=== PATIENT | female | born 1990 | race African-American/Black ===

== ENCOUNTER 2016-12-14 09:22 | Emergency (ER) | payer MEDICAID, OTHER ==
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
--- NOTE | 2016-12-14 10:46 | RAD ---
HISTORY: Wrist pain, deformity of the radial styloid, right wrist COMPARISONS: None VIEWS: 3, Frontal, lateral, and oblique views of the right wrist FINDINGS: BONE DENSITY: Normal. BONES: There is no displaced fracture. JOINTS: There is no arthropathy. ALIGNMENT: There is no dislocation. SOFT TISSUES: Unremarkable. OTHER FINDINGS: None. IMPRESSION: NO ACUTE OSSEOUS INJURY. IF SYMPTOMS PERSIST, RECOMMEND REPEAT IMAGING.
[2016-12-14 11:11] VITALS: BP 110/66
== END 2016-12-14 11:09 | disposition home or self-care (01) ==
LOC: ED 09:22
DX: M65.80 Other synovitis and tenosynovitis, unspecified site (principal); M25.531 Pain in right wrist; F17.210 Nicotine dependence, cigarettes, uncomplicated
CPT/HCPCS: 99282

== ENCOUNTER 2017-09-27 11:06 | Emergency (ER) | payer OTHER ==
[2017-09-27 11:12] VITALS: BP 106/74
[2017-09-27] MEDS ORDERED: Ondansetron INJ* 2 MG/ML VIAL IV ONE (11:29)
[2017-09-27] MEDS ORDERED: NS 0.9% 1000 ML* 1,000 ML IV ONE (11:29)
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
[2017-09-27 12:01] LABS: ABS Basophils 0 10^3/ul (0-0.2); ABS Eosinophils 0.1 10^3/ul (0-0.6); ABS Lymphocytes 1.1 10^3/ul (1.0-4.8); ABS Monocytes 0.4 10^3/ul (0-0.8); ABS Neutrophils 3.1 10^3/ul (1.5-7.7); ABS Nucleated RBC 0 10^3/ul; Eosinophil % 1.2 % (0-6); Hematocrit 40 % (35-47); Hemoglobin 13.6 g/dl (12.0-16.0); Lymphocyte % 24.5 % (25-47); Mean Corpuscular HGB Conc 34 g/dl (31-36); Mean Corpuscular Hemoglobin 30 pg (27-31); Mean Corpuscular Volume 88 fL (80-97); Mean Platelet Volume 7 um3 (7.4-10.4); Nucleated Red Blood Cells % 0; Platelet Count 316 10^3/ul (150-450); Red Blood Count 4.57 10^6/ul (4.0-5.4); Red Cell Distribution Width 13 % (10.5-15); White Blood Count 4.6 10^3/ul (3.5-10.8)
[2017-09-27 12:15] LABS: EGFR Non-African American 60.5 (>60)
== END 2017-09-27 12:54 | disposition home or self-care (01) ==
LOC: ED 11:06
DX: K52.9 Noninfective gastroenteritis and colitis, unspecified (principal); R11.2 Nausea with vomiting, unspecified; R53.83 Other fatigue; R19.7 Diarrhea, unspecified; R06.02 Shortness of breath; Z86.59 Personal history of other mental and behavioral disorders; F17.210 Nicotine dependence, cigarettes, uncomplicated
CPT/HCPCS: 36415; 80053; 83605; 83690; 83735; 84702; 85025; 86140; 87502; 96374; 99282; J2405

== ENCOUNTER 2018-01-22 12:13 | Emergency (ER) | payer SELFPAY ==
[2018-01-22] MEDS ORDERED: Iohexol 300* (CONTRAST) 10 ML SDV IV ONE (13:35)
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
[2018-01-22 14:32] VITALS: BP 129/81
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
== END 2018-01-22 14:34 | disposition short-term general hospital (02) ==
LOC: ED 12:13
DX: M25.571 Pain in right ankle and joints of right foot (principal); R51 Headache; R07.9 Chest pain, unspecified; F41.9 Anxiety disorder, unspecified; F90.9 Attention-deficit hyperactivity disorder, unspecified type; F17.210 Nicotine dependence, cigarettes, uncomplicated; M54.9 Dorsalgia, unspecified; S00.511A Abrasion of lip, initial encounter; V09.9XXA Pedestrian injured in unspecified transport accident, initial encounter; Y92.9 Unspecified place or not applicable; F19.21 Other psychoactive substance dependence, in remission
CPT/HCPCS: 70450; 71260; 72125; 72128; 72131; 74177; 93005; 96374; 99284; Q9967

== ENCOUNTER 2018-01-25 13:08 | Emergency (ER) | payer MEDICAID ==
[2018-01-25] MEDS ORDERED: Cyclobenzaprine TAB* 10 MG PO ONE (13:25)
[2018-01-25] MEDS ORDERED: Ketorolac INJ* 60 MG/2 ML VIAL IM ONE (13:25)
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
[2018-01-25 14:18] VITALS: BP 99/78
== END 2018-01-25 14:16 | disposition home or self-care (01) ==
LOC: ED 13:08
DX: S13.4XXA Sprain of ligaments of cervical spine, initial encounter (principal); V89.2XXA Person injured in unspecified motor-vehicle accident, traffic, initial encounter; Y92.9 Unspecified place or not applicable; F17.210 Nicotine dependence, cigarettes, uncomplicated
CPT/HCPCS: 96372; 99282; A9270-GY; J1885

== ENCOUNTER 2018-06-23 17:11 | Emergency (ER) | payer SELFPAY ==
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
--- NOTE | 2018-06-23 17:54 | RAD ---
HISTORY: OD COMPARISONS: None VIEWS: 1: frontal AP view of the chest at 5:40 PM FINDINGS: LINES AND TUBES: None. CARDIOMEDIASTINAL SILHOUETTE: The cardiomediastinal silhouette is normal for portable technique. PLEURA: The costophrenic angles are sharp. No pleural abnormalities are noted. LUNG PARENCHYMA: The lungs are clear. ABDOMEN: The upper abdomen is clear. There is no subphrenic gas. BONES AND SOFT TISSUES: No bone or soft tissue abnormalities are noted. IMPRESSION: NO ACTIVE CARDIOPULMONARY DISEASE.
[2018-06-23 18:29] LABS: ABS Basophils 0 10^3/ul (0-0.2); ABS Eosinophils 0 10^3/ul (0-0.6); ABS Lymphocytes 1.7 10^3/ul (1.0-4.8); ABS Monocytes 0.5 10^3/ul (0-0.8); ABS Neutrophils 6.6 10^3/ul (1.5-7.7); ABS Nucleated RBC 0 10^3/ul; Eosinophil % 0.3 % (0-6); Hematocrit 38 % (35-47); Lymphocyte % 19.1 % (25-47); Mean Corpuscular HGB Conc 34 g/dl (31-36); Mean Corpuscular Hemoglobin 31 pg (27-31); Mean Corpuscular Volume 89 fL (80-97); Mean Platelet Volume 6.9 um3 (7.4-10.4); Nucleated Red Blood Cells % 0.1; Platelet Count 296 10^3/ul (150-450); Red Blood Count 4.27 10^6/ul (4.00-5.40); Red Cell Distribution Width 13 % (10.5-15); White Blood Count 8.8 10^3/ul (3.5-10.8)
[2018-06-23 18:39] LABS: EGFR Non-African American 77.3 (>60)
[2018-06-23 19:50] LABS: Urine Appearance Cloudy; Urine Blood Negative (Negative); Urine Color Yellow; Urine Ketones Negative (Negative); Urine Protein 1+(30 mg/dL) (Negative); Urine Red Blood Cell Trace(0-2/hpf) (Absent); Urine Specific Gravity 1.017 (1.010-1.030); Urine Urobilinogen Negative (Negative); Urine White Blood Cell Trace(0-5/hpf) (Absent)
[2018-06-23 20:54] VITALS: BP 109/70
[2018-06-25 14:08] LABS: Herpes Simplex Virus II IgG AB Negative (Negative)
== END 2018-06-23 20:40 | disposition home or self-care (01) ==
LOC: ED 17:11
DX: T40.1X1A Poisoning by heroin, accidental (unintentional), initial encounter (principal); T42.6X1A Poisoning by other antiepileptic and sedative-hypnotic drugs, accidental (unintentional), initial encounter; R07.89 Other chest pain; Y92.9 Unspecified place or not applicable; F17.210 Nicotine dependence, cigarettes, uncomplicated
CPT/HCPCS: 36415; 71045; 80053; 80307; 80320; 80329; 81003; 81015; 82550; 83605; 85025; 86694; 86695; 86696; 87086; 93005; 99283; G0480

== ENCOUNTER 2019-05-20 18:22 | Emergency (ER) | payer OTHER ==
[2019-05-20 18:31] VITALS: BP 87/68
== END 2019-05-20 20:20 | disposition left against medical advice (07) ==
LOC: ED 18:22
DX: Z53.21 Procedure and treatment not carried out due to patient leaving prior to being seen by health care provider (principal)
CPT/HCPCS: 99281

== ENCOUNTER 2019-06-05 16:41 | Emergency (ER) | payer OTHER ==
[2019-06-05] MEDS ORDERED: Ibuprofen TAB* 600 MG PO ONE (17:19)
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
[2019-06-05] MEDS ORDERED: Lidocaine 1% MPF ** 5 ML VIAL INJ ONE (18:29)
[2019-06-05 19:15] VITALS: BP 109/71
== END 2019-06-05 19:10 | disposition home or self-care (01) ==
LOC: ED 16:41
DX: L08.89 Other specified local infections of the skin and subcutaneous tissue (principal); F41.9 Anxiety disorder, unspecified; F90.9 Attention-deficit hyperactivity disorder, unspecified type; F32.9 Major depressive disorder, single episode, unspecified; F17.210 Nicotine dependence, cigarettes, uncomplicated
CPT/HCPCS: 99282

== ENCOUNTER 2021-02-18 20:09 | Inpatient (IN) ==
[2021-02-18] MEDS ORDERED: Buffered Lidocaine 1% SYRIN 1 ml INTRADERM ONE ×2 (20:41→22:44)
[2021-02-18] MEDS ORDERED: Sodium Phosphate ADULT ENEMA 133 ML BTL PR ONE (20:43)
[2021-02-18 22:14] LABS: Urine Benzodiazepine Screen None Detected (None Detect); Urine Cannabinoids Screen None Detected (None Detect); Urine Opiates Screen None Detected (None Detect)
[2021-02-18] MEDS ORDERED: Lactated Ringers 1000 ml BAG 1,000 ML IV ONE (22:44)
[2021-02-18] MEDS ORDERED: Oxytocin in LR 20 UNITS/1,000 ML BAG IVPB SCH (23:00)
[2021-02-19 00:24] LABS: ABS Eosinophils 0.1 10^3/ul (0-0.6); ABS Lymphocytes 1.9 10^3/ul (1.0-4.8); ABS Monocytes 0.7 10^3/ul (0-0.8); ABS Neutrophils 5.6 10^3/ul (1.5-7.7); Eosinophil % 1.2 %; Hematocrit 32 % (35-47); Hemoglobin 11.2 g/dL (12.0-16.0); Mean Corpuscular HGB Conc 35 g/dL (31-36); Mean Corpuscular Hemoglobin 32 pg (27-31); Mean Corpuscular Volume 91 fL (80-97); Mean Platelet Volume 9.2 fL (7.4-10.4); Nucleated Red Blood Cells % 0.1; Platelet Count 185 10^3/uL (150-450); Red Blood Count 3.52 10^6 /uL (3.70-4.87); Red Cell Distribution Width 14 % (10-15); White Blood Count 8.3 10^3/uL (3.5-10.8)
[2021-02-19] MEDS: Lactated Ringers 1000 ml BAG 1,000 ML IV SCH ×3 (03:43→16:05)
[2021-02-19] MEDS ORDERED: Nicotine GUM 4MG FRUIT FLAVOR PO PRN (04:32)
[2021-02-19] MEDS ORDERED: OBEPIDURAL 250 ML EPIDURAL ONE (15:38)
[2021-02-19] MEDS ORDERED: Phenylephrine 40 mcg/mL 10mL (400mcg) SYRINGE IV PUSH PRN ×2 (16:05)
[2021-02-19] MEDS ORDERED: Sodium Citrate/Citric Acid LIQ 15 ML UDC PO PRN (16:05)
[2021-02-19] MEDS ORDERED: Lactated Ringers 1000 ml BAG 1,000 ML IV ONE (16:05)
[2021-02-19] MEDS ORDERED: OBEPIDURAL 250 ML EPIDURAL SCH (17:00)
[2021-02-19] MEDS ORDERED: Lactated Ringers 1000 ml BAG 1,000 ML IV SCH (17:00)
[2021-02-19] MEDS ORDERED: Lidocaine 2% w/ EPI 1:200,000 MPF 20 ML SDV VIAL ONE (23:33)
[2021-02-20] MEDS ORDERED: Witch Hazel PAD JAR TOPICAL PRN (02:43)
[2021-02-20] MEDS ORDERED: Dibucaine 1% OINT 28.35 GM TUBE PR PRN (02:43)
[2021-02-20] MEDS ORDERED: Glycerin ADULT 2.4 gm SUPP PR PRN (02:43)
[2021-02-20] MEDS ORDERED: Oxytocin in LR 20 UNITS/1,000 ML BAG IVPB SCH (03:00)
[2021-02-20] MEDS ORDERED: Lactated Ringers 1000 ml BAG 1,000 ML IV SCH (03:00)
[2021-02-20] MEDS ORDERED: Lidocaine 1% VIAL 10 MG/ML VIAL ONE (06:24)
[2021-02-20] MEDS: Nicotine PATCH 21 MG/24 HR PATCH TRANSDERM SCH (09:37)
[2021-02-21 05:39] LABS: ABS Eosinophils 0.1 10^3/ul (0-0.6); ABS Lymphocytes 2.4 10^3/ul (1.0-4.8); ABS Monocytes 0.6 10^3/ul (0-0.8); ABS Neutrophils 4.8 10^3/ul (1.5-7.7); Eosinophil % 1.9 %; Hematocrit 22 % (35-47); Hemoglobin 7.6 g/dL (12.0-16.0); Lymphocyte % 30.1 %; Mean Corpuscular HGB Conc 34 g/dL (31-36); Mean Corpuscular Hemoglobin 31 pg (27-31); Mean Corpuscular Volume 91 fL (80-97); Mean Platelet Volume 8.7 fL (7.4-10.4); Nucleated Red Blood Cells % 0.1; Platelet Count 145 10^3/uL (150-450); Red Blood Count 2.43 10^6 /uL (3.70-4.87); Red Cell Distribution Width 14 % (10-15); White Blood Count 7.9 10^3/uL (3.5-10.8)
[2021-02-21] MEDS: Nicotine PATCH 21 MG/24 HR PATCH TRANSDERM SCH (09:17)
[2021-02-22] MEDS ORDERED: medroxyPROGESTERone ACETATE 150 MG/ML VIAL IM ONE (08:51)
[2021-02-22 09:23] VITALS: BP 124/85
[2021-02-22] MEDS: Nicotine PATCH 21 MG/24 HR PATCH TRANSDERM SCH (14:06)
== END 2021-02-22 14:15 | disposition home or self-care (01) ==
LOC: MCHOBOUT 20:09 → MCHOB 21:53
PROVIDERS: ADMIT Obstetrics & Gynecology; ATTEND Obstetrics & Gynecology

== ENCOUNTER 2022-07-18 04:43 | Inpatient (IN) ==
[2022-07-18] MEDS ORDERED: Ondansetron 4 mg VIAL 2 MG/ML 2 ml VIAL IV ONE (04:58)
[2022-07-18] MEDS ORDERED: Lactated Ringers 1000 ml BAG 1,000 ML IV ONE ×2 (04:58→06:27)
[2022-07-18] MEDS ORDERED: Ondansetron ODT 4 mg TAB 4 MG TAB ONE (05:32)
[2022-07-18 05:38] LABS: ABS Lymphocytes 1.8 10^3/ul (1.0-4.8); ABS Neutrophils 8.4 10^3/ul (1.5-7.7); Eosinophil % 0.1 %; Hematocrit 47 % (35-47); Hemoglobin 15.5 g/dL (12.0-16.0); Lymphocyte % 16.4 %; Mean Corpuscular HGB Conc 33 g/dL (31-36); Mean Corpuscular Hemoglobin 28 pg (27-31); Mean Corpuscular Volume 84 fL (80-97); Mean Platelet Volume 6.9 fL (7.4-10.4); Nucleated Red Blood Cells % 0.1; Platelet Count 578 10^3/uL (150-450); Red Blood Count 5.58 10^6 /uL (3.70-4.87); Red Cell Distribution Width 14 % (10-15); White Blood Count 11.3 10^3/uL (3.5-10.8)
[2022-07-18] MEDS ORDERED: Famotidine IV 10 MG/ML 2 ml VIAL (20 mg) IV SLOW PU ONE (05:58)
[2022-07-18] MEDS ORDERED: Lorazepam PYXIS KEY PRN (06:00)
[2022-07-18] MEDS ORDERED: LORazepam 2 mg VIAL 1 ml IV PUSH ONE (06:00)
[2022-07-18 06:20] LABS: Albumin 5.8 g/dL (3.2-5.2); CO2 Carbon Dioxide 29 mmol/L (22-32); Calcium 11.2 mg/dL (8.6-10.3); Chloride 93 mmol/L (101-111); Sodium 141 mmol/L (135-145)
[2022-07-18 06:26] LABS: ALT 112 U/L (7-52); Acetaminophen < 15 mcg/mL; Albumin/Globulin Ratio 1.5 (1-3); Alcohol, S < 13 mg/dL (<13); Alkaline Phosphatase 96 U/L (35-149); Blood Urea Nitrogen 30 mg/dL (6-24); C Reactive Protein < 1.00 mg/L (<8.01); Glucose 125 mg/dL (70-100); Lipase 14 U/L (11.0-82.0); Salicylate < 2.50 mg/dL (<30); Total Protein 9.8 g/dL (6.4-8.9); eGFR CKD-EPI 59.3 (>60)
[2022-07-18 06:33] LABS: Anion Gap 19 mmol/L (2-11)
[2022-07-18] MEDS ORDERED: Iodixanol (CONTRAST) 320 MG/ML 100 ML SDV IV ONE (06:44)
[2022-07-18 07:03] LABS: HCG Pregnancy < 0.60 mIU/mL
[2022-07-18 09:59] LABS: Magnesium 2.4 mg/dL (1.9-2.7); Potassium Redraw 3.7 mmol/L (3.5-5.0)
[2022-07-18] MEDS ORDERED: NS 0.9% 1000 ml BAG 1,000 ML IV ONE (11:16)
[2022-07-18] MEDS ORDERED: Al Hydrox/Mg Hydrox/Simet LIQ 30 ML UDC PO PRN (12:09)
[2022-07-18 12:10] LABS: Urine Appearance Clear; Urine Bacteria 1+ (Absent); Urine Bilirubin Negative (Negative); Urine Blood 1+ (Negative); Urine Color Yellow; Urine Glucose Negative (Negative); Urine Ketones 1+ (Negative); Urine Nitrite Negative (Negative); Urine Protein 2+(100 mg/dL) (Negative); Urine Red Blood Cell 1+(3-5/hpf) (Absent); Urine Squamous Epithelial Cell Present (Absent); Urine Urobilinogen Negative (Negative); Urine White Blood Cell Trace(0-5/hpf) (Absent)
[2022-07-18 12:16] LABS: Urine Specific Gravity > 1.060 (1.002-1.030)
[2022-07-18 12:18] LABS: Urine Benzodiazepine Screen None Detected (None Detect); Urine Cannabinoids Screen None Detected (None Detect); Urine Opiates Screen None Detected (None Detect)
[2022-07-18] MEDS: Ondansetron ODT 4 mg TAB 4 MG TAB SL PRN (17:26)
[2022-07-18 21:31] LABS: Hepatitis B Surface Antigen Nonreactive (Nonreactive)
[2022-07-18 21:36] LABS: Hepatitis A Ab IgM Negative (Negative)
[2022-07-18 21:37] LABS: Hepatitis B Core IgM Nonreactive (Nonreactive)
[2022-07-18 21:49] LABS: Hepatitis C Antibody Negative (Negative)
[2022-07-19] MEDS: Ondansetron ODT 4 mg TAB 4 MG TAB SL PRN ×2 (02:02→15:22)
[2022-07-19 07:56] LABS: HDL Cholesterol 31.3 mg/dL
[2022-07-19] MEDS: buPROPion SR 100 mg TAB.SR PO SCH (13:45)
[2022-07-19] MEDS ORDERED: Calcium Carb (TUMS) 500 mg CHEW TAB PO PRN (15:45)
[2022-07-19] MEDS: NS 0.9% 1000 ml BAG 1,000 ML IV SCH ×2 (18:15→19:15)
[2022-07-20 08:00] LABS: Hematocrit 36 % (35-47); Mean Corpuscular HGB Conc 33 g/dL (31-36); Mean Corpuscular Hemoglobin 28 pg (27-31); Mean Corpuscular Volume 85 fL (80-97); Mean Platelet Volume 6.4 fL (7.4-10.4); Platelet Count 396 10^3/uL (150-450); Red Blood Count 4.26 10^6 /uL (3.70-4.87); Red Cell Distribution Width 14 % (10-15); White Blood Count 4.6 10^3/uL (3.5-10.8)
[2022-07-20 08:40] LABS: Albumin 4.1 g/dL (3.2-5.2); Albumin/Globulin Ratio 1.6 (1-3); Calcium 9.1 mg/dL (8.6-10.3); Globulin 2.5 g/dL (2-4); Potassium 4.1 mmol/L (3.5-5.0); Total Bilirubin 0.9 mg/dL (0.2-1.0); Total Protein 6.6 g/dL (6.4-8.9); eGFR CKD-EPI 71.3 (>60)
[2022-07-20] MEDS: buPROPion SR 100 mg TAB.SR PO SCH (08:53)
[2022-07-20] MEDS ORDERED: medroxyPROGESTERone ACETATE 150 MG/ML VIAL IM ONE (11:54)
[2022-07-20] MEDS: Nicotine PATCH 14 MG/24 HR PATCH TRANSDERM SCH (14:20)
[2022-07-20] MEDS: Nicotine GUM 2MG FRUIT FLAVOR PO PRN ×2 (15:12→19:35)
[2022-07-21] MEDS: Nicotine PATCH 14 MG/24 HR PATCH TRANSDERM SCH (07:20)
[2022-07-21] MEDS: buPROPion SR 100 mg TAB.SR PO SCH (08:33)
[2022-07-21] MEDS: Nicotine GUM 2MG FRUIT FLAVOR PO PRN ×3 (11:00→17:52)
[2022-07-22] MEDS: Nicotine GUM 2MG FRUIT FLAVOR PO PRN ×2 (07:23→10:55)
[2022-07-22] MEDS: buPROPion SR 100 mg TAB.SR PO SCH (09:43)
[2022-07-22] MEDS: Nicotine PATCH 14 MG/24 HR PATCH TRANSDERM SCH (09:44)
[2022-07-22 10:51] VITALS: BP 104/66
== END 2022-07-22 13:18 | disposition home or self-care (01) | DRG 773 ==
LOC: ED 04:43 → EDHOLD 12:09 → BSU 13:10
PROVIDERS: ADMIT Psychiatry & Neurology Psychiatry; ATTEND Psychiatry & Neurology Psychiatry